=== PATIENT | female | born 1975 | race Caucasian/White ===

== ENCOUNTER 2022-12-05 08:55 | Day surgery (SDC) | payer BC, OTHER ==
[2022-12-04 11:03] VITALS: BMI 28.3
[2022-12-05] MEDS ORDERED: PROPOFOL 20 ML ONE (09:45)
[2022-12-05] MEDS ORDERED: LIDOCAINE HCL/PF 2% SDV 5ML VIAL ONE (09:45)
[2022-12-05] MEDS ORDERED: ceFAZolin SODIUM 1 GM VIAL ONE (09:45)
[2022-12-05] MEDS ORDERED: ONDANSETRON 4 MG/2 ML VIAL ONE (09:45)
[2022-12-05] MEDS ORDERED: MIDAZOLAM HCL 2 MG/2 ML SINGLE DOSE VIAL ONE ×2 (09:45→11:19)
[2022-12-05] MEDS ORDERED: KETOROLAC TROMETHAMINE 30 MG/1 ML VIAL ONE (09:45)
[2022-12-05] MEDS ORDERED: BUPIVACAINE HCL/PF 0.25% (2.5MG/ML) 10 ML VIAL ONE (10:28)
[2022-12-05] MEDS ORDERED: oxyCODONE HCL 5 MG TABLET PO PRN ×2 (10:32)
[2022-12-05] MEDS ORDERED: ONDANSETRON 4 MG/2 ML VIAL IVPUSH PRN (10:32)
[2022-12-05] MEDS ORDERED: LACTATED RINGERS SOLUTION 1,000 ML IV SCH (10:45)
[2022-12-05] MEDS ORDERED: ACETAMINOPHEN INJECTION 100 ML IVPB ONE (11:18)
[2022-12-05] MEDS ORDERED: FENTANYL CITRATE/PF 50 MCG/ML VIAL ONE ×4 (13:01→13:43)
[2022-12-05 14:57] VITALS: BP 110/71; PULSE 93; RESP 18; TEMP 98
== END 2022-12-05 15:50 | disposition home or self-care (01) ==
LOC: FASU 08:55
PROVIDERS: ATTEND Orthopaedic Surgery Hand Surgery
PROC: 0MQ70ZZ Repair Right Hand Bursa and Ligament, Open Approach (ICD-10-PCS; principal; 2022-12-05 11:58)
DX: S63.641A Sprain of metacarpophalangeal joint of right thumb, initial encounter (principal); X58.XXXA Exposure to other specified factors, initial encounter; Y92.9 Unspecified place or not applicable; Y93.9 Activity, unspecified
CPT/HCPCS: 94760; C1713